=== PATIENT | female | born 1970 | race Caucasian/White ===

== ENCOUNTER 2018-05-27 16:48 | Observation (INO) ==
[2018-05-27] MEDS ORDERED: Nitroglycerin 0.4 MG TAB.SUBL SL ONE (17:30)
[2018-05-27] MEDS ORDERED: Aspirin 81 MG TAB.CHEW PO ONE (17:30)
--- NOTE | 2018-05-27 17:46 | Emergency Department Note ---
Disposition Clinical Impression: Cough, Chest pain Disposition: Admitted As Inpatient Condition: Fair Time of Disposition: 19:01 Chest Pain HPI - General Stated Complaint: Chest Pain Time Seen by Provider: 05/27/18 17:25 Source: patient Mode of arrival: ambulatory Limitations: no limitations Vital Signs Reviewed: Yes Nursing Notes Reviewed: Yes - History of Present Illness HPI Narrative: Patient presents to the emergency room with complaint of shortness of breath and chest pain. Patient has never had symptoms like this before. She has been complaining of a productive cough sputum. She does have COPD. Patient has no specific cardiac history outside of atrial fibrillation. She otherwise is denying shortness of breath headache vision changes nausea vomiting or diarrhea. Currently denying fevers or chills. She has not started any new medications or had any other symptoms or complaints. 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: constant Onset: during rest Pain Location: substernal Severity: moderate Severity scale (1-10): 4 Quality: aching Improves with: nothing Worsens with: movement, other Context: recent illness Associated symptoms: Reports: dyspnea Treatments prior to arrival chest pain: none - Related Data Home Medications Medication Instructions Recorded Confirmed Hydrochlorothiazide 12.5 mg PO DAILY 08/03/17 08/03/17 Lisinopril 5 mg PO DAILY 08/03/17 08/03/17 Previous Rx's Medication Instructions Recorded Venlafaxine XR (24 HR) [Effexor Xr] 150 mg PO DAILY #30 cap.er.24h 04/25/16 Allergies Allergy/AdvReac Type Severity Reaction Status Date / Time moxifloxacin [From Avelox] Allergy Hives Verified 06/04/15 14:44 codeine AdvReac Palpitation Verified 06/04/15 14:44 s All systems ED: reviewed and negative except as stated. Review of Systems: As Per HPI Constitutional: Denies: fever, chills, weakness ENT ED: Reports: congestion. Denies: ear pain, throat pain, dysphagia Cardiovascular: Reports: chest pain. Denies: palpitations, dyspnea on exertion, orthopnea, edema Respiratory: Reports: cough, sputum production. Denies: dyspnea, wheezes Gastrointestinal: Denies: abdominal pain, nausea, vomiting, diarrhea Genitourinary: Denies: urgency, dysuria Musculoskeletal: Denies: back pain, neck pain Neurological: Denies: headache Chest Pain PMH - Past Medical History Medical history: Reports: COPD, coronary artery disease, hyperlipidemia, hypertension, TIA Psychiatric history: Reports: bipolar, schizophrenia PSYCHIATRIC RN history: Reports: bilateral tubal ligation - Social History Smoking Status: Current every day smoker Alcohol use: Reports: none Drug use: Reports: none Physical Exam - General Limitations: no limitations General appearance: alert, in no apparent distress - Head Head exam: atraumatic, normocephalic, normal inspection - Eye Eye exam: Present: normal appearance, PERRL, EOMI. Absent: scleral icterus, conjunctival injection, nystagmus - ENT ENT exam: normal exam, normal oropharynx, mucous membranes moist - Neck Neck exam: Present: normal inspection, full ROM, trachea midline. Absent: tenderness, meningismus, lymphadenopathy - Chest Chest inspection: Present: normal inspection, symmetric chest wall rise. Absent: tenderness - Respiratory Respiratory exam: Present: normal lung sounds bilaterally. Absent: respiratory distress - Cardiovascular Cardiovascular exam: Present: regular rate, normal rhythm, normal heart sounds - Abdominal Exam Abdominal exam: Present: soft, Non-Tender, normal bowel sounds. Absent: tenderness, distention, guarding, rebound, rigidity - Extremities Exam Extremities exam: Present: normal inspection, full ROM, normal capillary refill. Absent: tenderness, pedal edema - Back Exam Back exam: Present: normal inspection, full ROM. Absent: tenderness, CVA tenderness (R), CVA tenderness (L) - Neurological Exam Neurological exam: Present: alert, oriented X3, CN II-XII intact, normal gait - Skin Skin exam: Present: warm, dry, intact, normal color Course Course Narrative: Patient seen and examined the time of arrival. See history of present illness. 48-year-old female presents to the emergency room for evaluation of chest pain. Patient was sitting at a local recreational facility when she started to have a coughing fit and then had tightness across her chest wall. She denied any shortness of breath, fevers, chills. Denied any headache vision changes nausea vomiting or diarrhea. No other complaints or issues noted prior to the events. Patient is only describing a light pressure in her anterior chest wall at this time. She does have a known history of atrial fibrillation and is on Eliquis for this medical problem. She also has a stent in her right femoral artery secondary to arterial occlusion several years ago. She denies any complaints of symptoms in her legs. She is only describing pain in the midsternal region of her chest. She is low risk for pulmonary emboli at this point. She does have some consideration for COPD exacerbation versus pneumonia. Patient did not want breathing treatments or steroids at this time. Vital signs otherwise unremarkable. Cardiac evaluation including CBC, chemistry, troponin, BNP will be completed this time. Nitroglycerin as aspirin will be given here in the emergency room. Patient does have moderate risk for coronary artery disease ba sed on her history and risk factors. Disposition will most likely be admission dependent upon what the patient would want to have completed. We will continue to monitor here symptomatic control is completed and disposition is determined. No other acute issues noted during this treatment course. Physical exam shows clear lungs heart is regular. Abdomen is soft nontender nondistended no guardin g no rigidity no peritoneal symptoms. Patient is good appreciable pulses in the bilateral radial distribution as well as femoral. No other acute issues noted this time. Patient will have detailed cardiac evaluation completed this point in the disposition determined. - Reevaluation(s) Reevaluation #1: Patient's chest pain is still present one hour after arrival. Repeat EKG was collected and there was concern for ST segment depression in lead 1 as well as possible elevation in V1. Concern is noted that this is evolution of chest discomfort. Patient nitroglycerin will be given at this time. After the first dose of nitroglycerin the patient's blood pressure came down the patient's pain went away completely. Another EKG was collected after the pain had resolved and it was negative. Because of EKG changes as well as a symptomatic control I revi ewed the EKGs with the on-call ruby on rails developer Dr. Guallpa. He agreed with symptomatic control treatment for unstable angina. Heparin drip will be ordered at this time and patient will be admitted to the hospitals. Her labs are completely unremarkable this point. She denies any history of bleeding related issue she has not had any vaginal bleeding or blood in her stool. Her chest x-ray stable no acute signs of pneumomediastinum a widened cardiac silhouette. Patient will be admitted. The hospitalist Dr. Romano and I reviewed the patient's case. He had no other recommendations or concerns. Patient is otherwise clinically stable. Patient will be admitted for cardiac evaluation. She is still chest pain-free. I discussed this with the patient they are comfortable with the admission process. Patient is otherwise clinically stable to time of admission. No critical care applied to the patient's treatment course Time: 18:58 Vital Signs Temperature 98.3 F 05/27/18 17:55 Pulse Rate 73 05/27/18 17:55 Respiratory Rate 20 05/27/18 17:55 Blood Pressure 167/110 05/27/18 17:55 O2 Sat by Pulse Oximetry 97 05/27/18 17:55 Temperature 98.3 F 05/27/18 17:55 Pulse Rate 93 05/27/18 18:33 Respiratory Rate 18 05/27/18 18:33 Blood Pressure 158/109 05/27/18 18:33 O2 Sat by Pulse Oximetry 97 05/27/18 18:33 Oxygen Delivery Oxygen Delivery Room Air Chest Pain - MDM Narrative Medical decision making narrative: Chest pain, cough - Medical Records Medical records reviewed: Yes I reviewed the patient's medical records. - Lab Data Lab results reviewed: Yes I reviewed the patient's lab results. Result diagrams: 05/27/18 17:55 05/27/18 17:55 Lab Results 05/27/18 05/27/18 05/27/18 Range/Units 17:47 17:55 17:55 WBC (4.3-11.1) K/mcL RBC (3.82-4.97) M/mcL Hgb (11.5-15.4) g/dL Hct (35.3-44.9) % MCV (83.0-100.0) fL MCH (28.0-33.3) pg MCHC (31.6-35.5) g/dL RDW (11.5-14.5) % Plt Count (140-400) K/mcL MPV (9.4-12.4) fL Immature Gran % (0-4) % Seg Neutrophils % % Lymphocytes % % Monocytes % % Eosinophils % % Basophils % % Neutrophils # (1.6-8.9) K/mcL Lymphocytes # (0.6-4.6) K/mcL Monocytes # (0.0-1.3) K/mcL Eosinophils # (0.0-0.6) K/mcL Basophils # (0.0-0.2) K/mcL PT 11.2 (9.4-12.1) Seconds INR 1.0 APTT 39.1 H (26.0-36.0) Seconds Sodium (136-145) mEq/L Potassium (3.5-5.1) mEq/L Chloride (98-107) mEq/L Carbon Dioxide (23-29) mEq/L BUN (6-20) mg/dL Creatinine (0.60-1.20) mg/dL Est GFR ( Amer) (> 60) Est GFR (Non-Af Amer) (> 60) BUN/Creatinine Ratio (6-26) Glucose (70-105) mg/dL Calculated Osmolality (280-300) Calcium (8.6-10.3) mg/dL Troponin I (< 0.04) ng/mL B-Natriuretic Peptide 276 H (Less than 100) pg/mL Urine Color Yellow (Yellow) Urine Clarity Hazy A (Clear) Urine pH 6.0 (5.0-8.0) pH Units Ur Specific [place] 1.012 (1.010-1.025) Urine Protein Negative (Neg-Trace) mg/dL Urine Glucose (UA) Normal (Normal) mg/dL Urine Ketones Negative (Negative) mg/dL Urine Blood Negative (Negative) Urine Nitrite Negative (Negative) Urine Bilirubin Negative (Negative) Urine Urobilinogen Normal (Normal) mg/dL Ur Leukocyte Esterase Trace H (Negative) Urine Microscopic RBC 5-15 H (0-3) per hpf Urine Microscopic WBC 5-15 H (0-3) per hpf Ur Squamous Epith Cells Many H (None-Few) per lpf Urine Bacteria Few (None-Few) per hpf Hyaline Casts None Seen (None-Few) per lpf Ur Culture Indicated? NO. A (NO) 05/27/18 05/27/18 Range/Units 17:55 17:55 WBC 8.5 (4.3-11.1) K/mcL RBC 4.79 (3.82-4.97) M/mcL Hgb 14.9 (11.5-15.4) g/dL Hct 43.4 (35.3-44.9) % MCV 90.6 (83.0-100.0) fL MCH 31.1 (28.0-33.3) pg MCHC 34.3 (31.6-35.5) g/dL RDW 14.2 (11.5-14.5) % Plt Count 231 (140-400) K/mcL MPV 11.2 (9.4-12.4) fL Immature Gran % 0.2 (0-4) % Seg Neutrophils % 60.3 % Lymphocytes % 30.3 % Monocytes % 5.7 % Eosinophils % 3.0 % Basophils % 0.5 % Neutrophils # 5.1 (1.6-8.9) K/mcL Lymphocytes # 2.6 (0.6-4.6) K/mcL Monocytes # 0.5 (0.0-1.3) K/mcL Eosinophils # 0.3 (0.0-0.6) K/mcL Basophils # 0.0 (0.0-0.2) K/mcL PT (9.4-12.1) Seconds INR APTT (26.0-36.0) Seconds Sodium 137 (136-145) mEq/L Potassium 3.7 (3.5-5.1) mEq/L Chloride 104 (98-107) mEq/L Carbon Dioxide 26 (23-29) mEq/L BUN 11 (6-20) mg/dL Creatinine 0.64 (0.60-1.20) mg/dL Est GFR ( Amer) > 60 (> 60) Est GFR (Non-Af Amer) > 60 (> 60) BUN/Creatinine Ratio 17 (6-26) Glucose 112 H (70-105) mg/dL Calculated Osmolality 284 (280-300) Calcium 10.1 (8.6-10.3) mg/dL Troponin I < 0.03 (< 0.04) ng/mL B-Natriuretic Peptide (Less than 100) pg/mL Urine Color (Yellow) Urine Clarity (Clear) Urine pH (5.0-8.0) pH Units Ur Specific [place] (1.010-1.025) Urine Protein (Neg-Trace) mg/dL Urine Glucose (UA) (Normal) mg/dL Urine Ketones (Negative) mg/dL Urine Blood (Negative) Urine Nitrite (Negative) Urine Bilirubin (Negative) Urine Urobilinogen (Normal) mg/dL Ur Leukocyte Esterase (Negative) Urine Microscopic RBC (0-3) per hpf Urine Microscopic WBC (0-3) per hpf Ur Squamous Epith Cells (None-Few) per lpf Urine Bacteria (None-Few) per hpf Hyaline Casts (None-Few) per lpf Ur Culture Indicated? (NO) - Radiology Data Radiology results reviewed: Yes I reviewed the patient's radiology results. Chest x-ray is otherwise unremarkable. - EKG Data EKG attestation: Yes I reviewed and interpreted this EKG. EKG results narrative: EKG shows sinus rhythm. Heart rate of 82. CO interval 153. QRS duration of 85. QTC of 409. No acute signs of myocardial infarction. Lynch appears to be normal. No acute signs of WPW or Brugada syndrome. EKG will be reviewed. EKG #2 sinus rhythm. Heart rate of 75. CO interval 187. QRS duration 91. QTC of 444. Slight elevation in V1 with possible depression in lead 1. No other acute signs of ST segment elevation. T-wave inversion is noted in aVL. Patient was still having chest pain at the time. This does not meet STEMI criteria. Nitroglycerin trial started EKG #3 Nitroglycerin has been given chest pain is 0. EKG is identical to EKG #2. Slight ST segment elevation in lead V1. With slight depression in lead 1. Heart rate is 77. CO Intervals 203. QRS duration 90 5. QTC of 427. Lynch is normal. The T-wave in V1 has slight biphasic presentation but does not meet Brugada syndrome criteria. No other acute abnormalities noted Heart Score - Score History: Moderately Suspicious EKG: Non Specific repolarisation Disturbance Age: 45-65 Risk Factors: 1-2 risk factors Troponin: Less than normal limit HEART Score Total: 4
[2018-05-27 18:00] LABS: Bilirubin,Urine Negative (Negative); Blood,Urine Negative (Negative); Color,Urine Yellow (Yellow); Glucose,Urine (UA) Normal (Normal); Ketones,Urine Negative (Negative); Leukocyte Esterase,Urine Trace (Negative); Nitrite,Urine Negative (Negative); Protein,Urine Negative (Neg-Trace); Specific Gravity,Urine 1.012 (1.010-1.025); Urobilinogen,Urine Normal (Normal)
[2018-05-27 18:01] LABS: Bacteria,Urine Few per hpf (None-Few); Hyaline Casts,Urine None Seen per lpf (None-Few); Squamous Epithelial Cell,Urine Many per lpf (None-Few)
[2018-05-27 18:07] LABS: Clarity,Urine Hazy (Clear)
[2018-05-27 18:16] LABS: Basophils % 0.5 %; Eosinophils # 0.3 K/mcL (0.0-0.6); Hematocrit 43.4 % (35.3-44.9); Hemoglobin 14.9 g/dL (11.5-15.4); Immature Granulocytes % 0.2 % (0-4); Lymphocytes # 2.6 K/mcL (0.6-4.6); Lymphocytes % 30.3 %; Mean Corpuscular HGB Conc 34.3 g/dL (31.6-35.5); Mean Corpuscular Hemoglobin 31.1 pg (28.0-33.3); Mean Corpuscular Volume 90.6 fL (83.0-100.0); Mean Platelet Volume 11.2 fL (9.4-12.4); Monocytes # 0.5 K/mcL (0.0-1.3); Monocytes % 5.7 %; Neutrophils # 5.1 K/mcL (1.6-8.9); Platelet Count 231 K/mcL (140-400); Red Blood Count 4.79 M/mcL (3.82-4.97); Red Cell Distribution Width 14.2 % (11.5-14.5); Segmented Neutrophils % 60.3 %
[2018-05-27 18:24] LABS: Prothrombin Time 11.2 Seconds (9.4-12.1)
[2018-05-27 18:26] LABS: Activated Partial Thrombo Time 39.1 Seconds (26.0-36.0)
[2018-05-27] MEDS ORDERED: *HR* Heparin 5,000 UNIT/ML VIAL IVP ONE (18:33)
[2018-05-27] MEDS ORDERED: *HR* Heparin 5,000 UNIT/ML VIAL IVP PRN (18:33)
[2018-05-27 18:38] LABS: BUN/Creatinine Ratio 17 (6-26); Blood Urea Nitrogen 11 mg/dL (6-20); Calcium 10.1 mg/dL (8.6-10.3); Carbon Dioxide 26 mEq/L (23-29); Chloride 104 mEq/L (98-107); Glucose 112 mg/dL (70-105); Osmolality,Calculated 284 (280-300); Potassium 3.7 mEq/L (3.5-5.1); Sodium 137 mEq/L (136-145); eGFR For Non-African Americans > 60 (> 60)
[2018-05-27 18:39] LABS: Troponin I < 0.03 ng/mL (< 0.04)
[2018-05-27 18:55] LABS: Heparin anti-factor XA UFH 0.02 IU/mL (0.30-0.70)
[2018-05-27] MEDS: Heparin 25,000 UNIT/500 ML D5W 25,000 UNIT/500 ML BAG IVC SCH (19:29)
[2018-05-27] MEDS ORDERED: Naloxone 0.4 MG/ML INJ IVP PRN (23:42)
--- NOTE | 2018-05-28 00:11 | Internal Med History&Physical ---
Date of Encounter: 05/28/18 Time of Encounter: 22:45 Internal Medicine - H&P: HPI Chief complaint: Chest Pain Admitted From: Home Plans for Post Hospital Care: Home History of present illness: Ms. Mackey is a 48 year old female with past medical history significant for CAD, hypertension, hyperlipidemia, Afib, right femoral artery stent secondary to arterial occlusion, tobacco abuse, TIA, bipolar, and schizoaffective disorder who presents for complaints of substernal 10/10 chest pain without radiation that started suddenly while walking. Patient describes pain as feeling like someone was standing on her chest, and states she has never felt pain like this before. Pain was associated with nausea and diaphoresis. Pain was alleviated with nitroglycerin 2 in ER but denies any other alleviating or exacerbating factors. Currently denies chest pain, shortness of breath, headache, abdominal pain, nausea, bowel or bladder changes. ER reported EKG with slight ST elevation in lead V1, slight ST depression in lead 1, and slight biphasic presentation of T wave in lead V1. These findings were discussed between the ER provider and on-call cardiology Dr. Guallpa who recommended heparin drip for suspected unstable angina. Patient continues to be pain-free at this time. Also states that she has had a dry non productive cough for the past week, states this occasionally happens and resolves without intervention. Reports negative stress test in the past around 2 years ago. Denies any past echocardiogram or heart catheterization. Past Med Surg Social Fam HX - Past Medical History Medical history: atrial fibrillation, COPD, coronary artery disease, hyperlipidemia, hypertension, TIA Psychiatric history: bipolar, schizophrenia - Past Surgical History Additional surgical history: benign growth removed from throat - Social History Smoking Status: Current every day smoker Smokeless Tobacco Status: No Alcohol use: none Drug use: none - Family History Mother Hx Family Endocrine Disorder: Yes (Diabetes) Father Hx Family Cardiac Disorders: Yes Internal Medicine - H&P: Meds Venlafaxine XR (24 HR) [Effexor Xr] 150 mg PO DAILY #30 cap.er.24h 04/25/16 [Rx] Hydrochlorothiazide 12.5 mg PO DAILY 08/03/17 [History] Lisinopril 5 mg PO DAILY 08/03/17 [History] Allergy/AdvReac Type Severity Reaction Status Date / Time moxifloxacin [From Avelox] Allergy Hives Verified 06/04/15 14:44 codeine AdvReac Palpitation Verified 06/04/15 14:44 s All Systems PM: A 10-system review of systems was performed and is negative for pertinent findings except as documented above in the HPI. - Constitutional Vitals: Temp Pulse Resp BP Pulse Ox 98.2 F 71 15 156/97 96 05/27/18 21:01 05/27/18 21:01 05/27/18 21:01 05/27/18 21:01 05/27/18 21:24 Exam: General: Alert and oriented. Skin:Normal color, no rash, no lesions. HEENT:Pupils equal, round and reactive. Cardiovascular:Normal S1 & S2, no rubs, murmurs or gallops. No JVD. Pulse regular. Lungs:Decreased breath sounds, no wheezes or crackles. Abdomen:Soft, non-tender, no rigidity. Extremities:No deformity, no edema or tenderness, no joint swelling or clubbing. Neurological:Normal cognition and motor skills. Pulses:Carotid and radial pulses normal +2. Rest of the physical exam is non contributory. Internal Med - H&P Results - Labs CBC & Chem 7: 05/27/18 17:55 05/27/18 17:55 Labs: Short CBC 05/27/18 Range/Units 17:55 WBC 8.5 (4.3-11.1) K/mcL Hgb 14.9 (11.5-15.4) g/dL Hct 43.4 (35.3-44.9) % Plt Count 231 (140-400) K/mcL Neutrophils # 5.1 (1.6-8.9) K/mcL BMP 05/27/18 17:55 Sodium 137 Potassium 3.7 Chloride 104 Carbon Dioxide 26 BUN 11 Creatinine 0.64 Glucose 112 H Calcium 10.1 Cardiac Enzymes 05/27/18 Range/Units 17:55 Troponin I < 0.03 (< 0.04) ng/mL Urine 05/27/18 Range/Units 17:47 Urine Color Yellow (Yellow) Urine Clarity Hazy A (Clear) Urine pH 6.0 (5.0-8.0) pH Units Ur Specific [place] 1.012 (1.010-1.025) Urine Protein Negative (Neg-Trace) mg/dL Urine Glucose (UA) Normal (Normal) mg/dL - Impressions ITS Impressions Chest X-Ray 05/27/18 17:30 IMPRESSION: No evidence of acute cardiopulmonary findings. D/ / Mariaa Kwon MD / Mariaa Kwon MD Interpreting Provider: Mariaa Kwon MD - Assessment and plan (1) Chest pain Current Visit: Yes Status: Acute Assessment and plan: Cardiology consulted by ER. 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 Heparin drip started in ER per cardiology, will continue same. Initial troponin negative, serial troponins ordered. NPO at midnight. Qualifiers: Chest pain type: unspecified Qualified Code(s): R07.9 - Chest pain, unspecified (2) Elevated brain natriuretic peptide (BNP) level Current Visit: Yes Status: Acute Assessment and plan: No current signs of heart failure. Repeat labs in a.m. (3) Schizoaffective disorder Current Visit: Yes Status: Chronic Assessment and plan: Continue home meds once verified. Qualifiers: Schizoaffective disorder type: unspecified Qualified Code(s): F25.9 - Schizoaffective disorder, unspecified (4) Bipolar disease, chronic Current Visit: Yes Status: Chronic Assessment and plan: Continue home meds once verified. (5) Hypertension Current Visit: Yes Status: Chronic Assessment and plan: Continue home meds once verified. Qualifiers: Hypertension type: unspecified Qualified Code(s): I10 - Essential (primary) hypertension (6) Tobacco abuse Current Visit: Yes Status: Chronic Assessment and plan: Smoking cessation encouraged. Refused nicotine patch at this time. - Time Spent With Patient Total time spent is greater than 50% in coordination of care (as documented) at patient's floor/unit and/or counseling patient:
[2018-05-28] MEDS: *HR* Heparin 5,000 UNIT/ML VIAL IVP PRN ×2 (03:49→18:00)
[2018-05-28 07:48] LABS: Basophils # 0.1 K/mcL (0.0-0.2); Basophils % 0.8 %; Eosinophils # 0.4 K/mcL (0.0-0.6); Eosinophils % 4.8 %; Hematocrit 45.4 % (35.3-44.9); Hemoglobin 14.8 g/dL (11.5-15.4); Immature Granulocytes % 0.3 % (0-4); Lymphocytes # 3.8 K/mcL (0.6-4.6); Lymphocytes % 43.4 %; Mean Corpuscular HGB Conc 32.6 g/dL (31.6-35.5); Mean Corpuscular Hemoglobin 30.2 pg (28.0-33.3); Mean Corpuscular Volume 92.7 fL (83.0-100.0); Monocytes # 0.6 K/mcL (0.0-1.3); Monocytes % 6.9 %; Neutrophils # 3.8 K/mcL (1.6-8.9); Platelet Count 236 K/mcL (140-400); Red Cell Distribution Width 14.1 % (11.5-14.5); Segmented Neutrophils % 43.8 %
--- NOTE | 2018-05-28 09:32 | Internal Med Progress Note ---
Hospitalist Progress Note - Encounter Date of Encounter: 05/28/18 Time of Encounter: 08:00 - Subjective Interval History: Patient was seen and examined at bedside. Reports that her chest pain has resolved since admission. Denies nausea, vomiting, diarrhea, diaphoresis. She has no other complaints. No overnight events. - Exam Vitals: Temp Pulse Resp BP Pulse Ox 97.7 F 72 20 158/92 97 05/28/18 07:26 05/28/18 07:26 05/28/18 07:26 05/28/18 07:26 05/28/18 07:26 Exam: General: Patient is alert, oriented, no acute distress, obese Head: atraumatic, normocephalic, Eye: normal appearance, PERRL, no scleral icterus, no conjunctival injection ENT: mucous membranes moist, normal external ear exam Neck: normal inspection, trachea midline, full ROM, no carotid bruits Chest: normal inspection, symmetric chest rise Respiratory: Good respiratory effort. Bilateral breath sounds are clear without wheezing, crackles, or rhonchi. Cardiovascular: Distant heart sounds secondary to body habitus, Regular rate and rhythm. s1 and s2 No clicks, rubs, gallops, or murmors. Abdomen: Bowel sounds present normoactive x-4 quadrants. Abdomen is soft, nondistended. no Epigastric tenderness. No guarding or rebound. No organomegaly noted, obese musculoskeletal: Spontaneously moving all extremities. no edema, no calf tenderness Skin: warm, dry, intact. Neuro: Alert and oriented x4. No focal deficit Psych: Patient's affect is normal - Assessment and Plan (1) Unstable angina Current Visit: Yes Status: Acute Assessment and Plan: Patient with chest pain and EKG changes on admission which was relieved by nitroglycerin Troponins negative [address] Guallpa consulted by the ED physician and recommended heparin drip- will follow further recs Aspirin 81 mg Started on metoprolol 12.5 mg BID continue lisinopril 5 mg lipitor 40 mg QHS TTE NTG PRN for chest pain TSH, Lipid panel, A1c (2) Schizoaffective disorder Current Visit: Yes Status: Chronic Assessment and Plan: Continue home meds once verified. (3) Bipolar disease, chronic Current Visit: Yes Status: Chronic Assessment and Plan: Continue home meds once verified. (4) Hypertension Current Visit: Yes Status: Chronic Assessment and Plan: on liniopril will adjust as per BP (5) Tobacco abuse Current Visit: Yes Status: Chronic Assessment and Plan: Smoking cessation encouraged. Refused nicotine patch at this time. (6) Obesity (BMI 30.0-34.9) Current Visit: Yes Status: Acute Assessment and Plan: Was counseled BMI 31 (7) DVT prophylaxis Current Visit: Yes Status: Acute Assessment and Plan: hep drip - Time Spent with Patient Total time spent is greater than 50% in coordination of care (as documented) at patient's floor/unit and/or counseling patient: Internal Medicine: Result - Labs CBC & Chem 7: 05/28/18 07:23 05/27/18 17:55 Labs: Short CBC 05/27/18 05/28/18 Range/Units 17:55 07:23 WBC 8.5 8.8 (4.3-11.1) K/mcL Hgb 14.9 14.8 (11.5-15.4) g/dL Hct 43.4 45.4 H (35.3-44.9) % Plt Count 231 236 (140-400) K/mcL Neutrophils # 5.1 3.8 (1.6-8.9) K/mcL BMP 05/27/18 17:55 Sodium 137 Potassium 3.7 Chloride 104 Carbon Dioxide 26 BUN 11 Creatinine 0.64 Glucose 112 H Calcium 10.1 Cardiac Enzymes 05/27/18 05/28/18 Range/Units 17:55 02:26 Troponin I < 0.03 < 0.03 (< 0.04) ng/mL Urine 05/27/18 Range/Units 17:47 Urine Color Yellow (Yellow) Urine Clarity Hazy A (Clear) Urine pH 6.0 (5.0-8.0) pH Units Ur Specific [place] 1.012 (1.010-1.025) Urine Protein Negative (Neg-Trace) mg/dL Urine Glucose (UA) Normal (Normal) mg/dL - ABG Interpretation ABG results: PT/INR, D-dimer PT 11.2 Seconds (9.4-12.1) 05/27/18 17:55 - Impressions Impressions Chest X-Ray 05/27/18 17:30 IMPRESSION: No evidence of acute cardiopulmonary findings. D/ / Mariaa Kwon MD / Mariaa Kwon MD Interpreting Provider: Mariaa Kwon MD Consult Discharge Plan - Plan (2) Schizoaffective disorder Qualifiers: Schizoaffective disorder type: unspecified Qualified Code(s): F25.9 - S chizoaffective disorder, unspecified (4) Hypertension Qualifiers: Hypertension type: unspecified Qualified Code(s): I10 - Essential (primary) h ypertension
[2018-05-28] MEDS ORDERED: Nitroglycerin 0.4 MG TAB.SUBL SL PRN (09:38)
[2018-05-28] MEDS: Aspirin 81 MG TAB.CHEW PO SCH (09:44)
--- NOTE | 2018-05-28 10:21 | Cardiology Consult Note ---
Date of Encounter: 05/28/18 Time of Encounter: 10:12 Assessment and Plan (1) Chest pain Current Visit: Yes Status: Acute Atypical symptoms with borderline EKG changes. BRITTNY negative so far. Would complete BRITTNY and check echo. If all negative would consider stress test. Qualifiers: Chest pain type: unspecified Qualified Code(s): R07.9 - Chest pain, unspecified Discussion w patient/family: The assessment and plan as outlined above was discussed with the patient and/or family members who expressed understanding and agreement. All questions were answered. Thank you for involving us in the care of your patient. Please call with any questions. History of Present Illness Consult date: 05/28/18 Requesting physician: Brionna Romano Consult reason: chest pain Chief complaint: chest pain History of present illness: Ms. Mackey is a 48 year old female with multiple medical problems presents with atypical chest pain. Episode actually started as a headache that then progressed to diaphoresis and then chest pain. Pain was persistent for several hours and had no aggravating or relieving factors. No recurrent chest pain. She has no exertional symptoms. Past Med Surg Social Fam HX - Past Medical History Medical history: atrial fibrillation, COPD, coronary artery disease, hyperlipidemia, hypertension, TIA Psychiatric history: bipolar, schizophrenia - Past Surgical History Additional surgical history: benign growth removed from throat - Social History Smoking Status: Current every day smoker Smokeless Tobacco Status: No Alcohol use: none Drug use: none - Family History Mother Hx Family Endocrine Disorder: Yes (Diabetes) Father Hx Family Cardiac Disorders: Yes Medications and Allergies Venlafaxine XR (24 HR) [Effexor Xr] 150 mg PO DAILY #30 cap.er.24h 04/25/16 [Rx] Hydrochlorothiazide 12.5 mg PO DAILY 08/03/17 [History] Lisinopril 5 mg PO DAILY 08/03/17 [History] Allergy/AdvReac Type Severity Reaction Status Date / Time moxifloxacin [From Avelox] Allergy Hives Verified 06/04/15 14:44 codeine AdvReac Palpitation Verified 06/04/15 14:44 s All Systems Review: The remainder of the systems were reviewed and are negative Physical Examination Vital Signs, Last 4 Hours Temp Pulse Resp BP Pulse Ox 05/28/18 07:26 97.7 F 72 20 158/92 97 General: Conversant, No Apparent Distress HEENT: Atraumatic, Normocephaly, Mucus Membranes Moist Neck: No JVD, Normal carotid pulses Cardiac: Reg Rate and Rhythm, Normal S1 and S2, No Murmur Lungs: Normal Breath Sounds, No Wheeze, Rales, Rhonchi Neuro: Alert and responsive, No focal deficits noted Abdomen: Soft, Non-Tender Skin: No rashes noted on visualized skin Musculoskeletal: No Chest Wall Tenderness Extremities: No Clubbing, No Cyanosis, No Edema, Normal Pulses Results 05/28/18 07:23 05/27/18 17:55 Lab Results 05/27/18 05/27/18 05/27/18 17:55 17:55 17:55 WBC 8.5 Hgb 14.9 Hct 43.4 Plt Count 231 INR 1.0 APTT 39.1 H Sodium Potassium Chloride Carbon Dioxide BUN Creatinine Glucose Calcium Troponin I B-Natriuretic Peptide 276 H 05/27/18 05/28/18 05/28/18 17:55 02:26 07:23 WBC 8.8 Hgb 14.8 Hct 45.4 H Plt Count 236 INR APTT Sodium 137 Potassium 3.7 Chloride 104 Carbon Dioxide 26 BUN 11 Creatinine 0.64 Glucose 112 H Calcium 10.1 Troponin I < 0.03 < 0.03 B-Natriuretic Peptide 05/28/18 05/28/18 07:23 08:50 WBC Hgb Hct Plt Count INR APTT Sodium Potassium Chloride Carbon Dioxide BUN Creatinine Glucose Calcium Troponin I < 0.03 B-Natriuretic Peptide 183 H - EKG Interpretation EKG results cardiology: personally reviewed (NSR, ST-T wave changes possibly secondary to LVH) Consult Discharge Plan - Plan Referrals: Nancy Mars QUARTER BACKER [Primary Care Provider] -
[2018-05-28] MEDS: Acetaminophen 325 MG TABLET PO PRN (15:38)
[2018-05-28] MEDS: Heparin 25,000 UNIT/500 ML D5W 25,000 UNIT/500 ML BAG IVC SCH (17:45)
[2018-05-28] MEDS: Venlafaxine XR (24 HR) 75 MG CAP.ER.24H PO SCH (22:26)
[2018-05-28] MEDS: Nicotine 7 MG PATCH.TD24 TD SCH (22:28)
[2018-05-29 01:00] LABS: BUN/Creatinine Ratio 21 (6-26); Blood Urea Nitrogen 14 mg/dL (6-20); Calcium 9.2 mg/dL (8.6-10.3); Carbon Dioxide 25 mEq/L (23-29); Chloride 106 mEq/L (98-107); Chol/HDL Ratio 12.8 (0-4.9); Cholesterol 268 mg/dL (< 200); Glucose 90 mg/dL (70-105); HDL Cholesterol 21 mg/dL (40-59); Osmolality,Calculated 286 (280-300); Potassium 3.7 mEq/L (3.5-5.1); Sodium 138 mEq/L (136-145); Triglycerides 966 mg/dL (< 150); eGFR For Non-African Americans > 60 (> 60)
[2018-05-29] MEDS ORDERED: Regadenoson 0.4 MG/5 ML SYRINGE IVP ONE (05:42)
[2018-05-29 08:36] LABS: Estimated Average Glucose 111 mg/dl; Hemoglobin A1C 5.5 %
[2018-05-29] MEDS: Venlafaxine XR (24 HR) 75 MG CAP.ER.24H PO SCH (09:04)
[2018-05-29] MEDS: Aspirin 81 MG TAB.CHEW PO SCH (09:04)
--- NOTE | 2018-05-29 10:45 | Internal Med Progress Note ---
Hospitalist Progress Note - Encounter Date of Encounter: 05/29/18 Time of Encounter: 10:39 - Subjective Interval History: Patient was seen and examined at bedside. Reports that her chest pain has resolved since admission. Denies nausea, vomiting, diarrhea, diaphoresis. She has no other complaints. No overnight events. - Exam Vitals: Temp Pulse Resp BP Pulse Ox 97.9 F 73 15 169/113 97 05/29/18 09:15 05/29/18 09:15 05/29/18 04:42 05/29/18 09:15 05/29/18 09:15 Exam: General: Patient is alert, oriented, no acute distress, obese Head: atraumatic, normocephalic, Eye: normal appearance, PERRL, no scleral icterus, no conjunctival injection ENT: mucous membranes moist, normal external ear exam Neck: normal inspection, trachea midline, full ROM, no carotid bruits Chest: normal inspection, symmetric chest rise Respiratory: Good respiratory effort. Bilateral breath sounds are clear without wheezing, crackles, or rhonchi. Cardiovascular: Distant heart sounds secondary to body habitus, Regular rate and rhythm. s1 and s2 No clicks, rubs, gallops, or murmors. Abdomen: Bowel sounds present normoactive x-4 quadrants. Abdomen is soft, nondistended. no Epigastric tenderness. No guarding or rebound. No organomegaly noted, obese musculoskeletal: Spontaneously moving all extremities. no edema, no calf tenderness Skin: warm, dry, intact. Neuro: Alert and oriented x4. No focal deficit Psych: Patient's affect is normal - Assessment and Plan (1) Unstable angina Current Visit: Yes Status: Acute Assessment and Plan: Patient with chest pain and EKG changes on admission which was relieved by nitroglycerin Troponins negative 3 Aspirin 81 mg metoprolol 12.5 mg BID lisinopril increased to 20 mg on heparin Drip lipitor 40 mg QHS TTE - LVEF 55%.Normal LV chamber size, wall thickness and systolic function. Mild left ventricular diastolic dysfunction. Stress test performd on 05/29- positive for ischemia in Distal LAD. NTG PRN for chest pain TSH WNL Lipid panel noted - started on statins- discussed diet and nutrition A1c 5.5 Discussed case with interventionalist - [facility] on 05/29 stress test: Pharmacologic stress ECG is negative for ischemia at level of heart rate achieved. Gated EF = 38%. Medium sized, mild to moderate intensity, mostly reversible defect in the apex and surrounding apical segments suggestive of ischemia. Ordering physician notified via [employer]. TTE: LVEF 55%. Normal LV chamber size, wall thickness and systolic function. Mild left ventricular diastolic dysfunction. Normal right ventricular structure and function. No significant valvular dysfunction. No pulmonary hypertension. (2) Schizoaffective disorder Current Visit: Yes Status: Chronic Assessment and Plan: Continue home meds once verified. (3) Bipolar disease, chronic Current Visit: Yes Status: Chronic Assessment and Plan: Continue home meds once verified. (4) Hypertension Current Visit: Yes Status: Chronic Assessment and Plan: on liniopril increased dosage will adjust as per BP (5) Tobacco abuse Current Visit: Yes Status: Chronic Assessment and Plan: Smoking cessation encouraged. Refused nicotine patch at this time. (6) Obesity (BMI 30.0-34.9) Current Visit: Yes Status: Acute Assessment and Plan: Was counseled BMI 31 (7) Hyperlipidemia Current Visit: Yes Status: Acute Assessment and Plan: was counseled extensively on diet and nutrition started on lipitor 80 (8) DVT prophylaxis Current Visit: Yes Status: Acute Assessment and Plan: hep drip - Time Spent with Patient Total time spent is greater than 50% in coordination of care (as documented) at patient's floor/unit and/or counseling patient: Internal Medicine: Result - Labs CBC & Chem 7: 05/28/18 07:23 05/29/18 00:26 Labs: BMP 05/29/18 00:26 Sodium 138 Potassium 3.7 Chloride 106 Carbon Dioxide 25 BUN 14 Creatinine 0.67 Glucose 90 Calcium 9.2 - ABG Interpretation ABG results: PT/INR, D-dimer PT 11.2 Seconds (9.4-12.1) 05/27/18 17:55 - Impressions Impressions Echocardiogram 05/28/18 09:39 Impressions: LVEF 55%. Normal LV chamber size, wall thickness and systolic function. Mild left ventricular diastolic dysfunction. Normal right ventricular structure and function. No significant valvular dysfunction. No pulmonary hypertension. Left Ventricular Wall Motion: Rest Echo Findings All wall segments showed normal motion. Findings: Study Quality * Technically adequate exam. ECG Findings * Normal sinus rhythm. Left Ventricle * LVEF 55%. * Normal LV chamber size, wall thickness and systolic function. * Mild left ventricular diastolic dysfunction. Right Ventricle * Normal right ventricular structure and function. Left Atrium * Normal left atrial size. Right Atrium * Normal right atrial size. Interatrial Septum * Interatrial septum not well evaluated. * No evidence of PFO by color Doppler. Aortic Valve * Trileaflet aortic valve. * No aortic stenosis. * Trace aortic regurgitation. Mitral Valve * Normal mitral valve structure and function. * No mitral stenosis. * No mitral regurgitation. Tricuspid Valve * Normal tricuspid valve structure and function. * No tricuspid stenosis. * Trace tricuspid regurgitation. * Estimated RVSP is 25 mmHg. * Estimated RA pressure is 8 mmHg. * No pulmonary hypertension. Pulmonic Valve * Pulmonic valve is not well visualized. * No pulmonic stenosis. * No pulmonic regurgitation. Aorta * Normally sized aortic root. Pericardium * The pericardium appears normal. IVC * Normal IVC dimensions and inspiratory collapse. Consult Discharge Plan - Plan Referrals: Nancy Mars, [employer]MENT MECH[employer]IC [Primary Care Provider] - (2) Schizoaffective disorder Qualifiers: Schizoaffective disorder type: unspecified Qualified Code(s): F25.9 - Schizoaffective disorder, unspecified (4) Hypertension Qualifiers: Hypertension type: unspecified Qualified Code(s): I10 - Essential (primary) hypertension (7) Hyperlipidemia Qualifiers: Hyperlipidemia type: mixed hyperlipidemia Qualified Code(s): E78.2 - Mixed hyperlipidemia
--- NOTE | 2018-05-29 13:10 | Event Note ---
Date of Encounter: 05/29/18 Time of Encounter: 13:07 - Cardiology Event Note Patient presented with chest pain, underwent stress test today, noted to be abnormal: medium sized, mild intensity mostly reversible defect apex and surrounding apical segments suggestive of ischemia. Discussed abnormal stress test and recommendations for LHC with patient. Risks versus benefits of LHC explained to patient who states understanding and agreeable to proceed. Of note, BP hypertensive 160s systolic. Will add PRN hydralazine. Further recommendations pending LHC today. Patient reports has been NPO today.
--- NOTE | 2018-05-29 15:00 | Electrocardiograph Report ---
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
[2018-05-29] MEDS ORDERED: Heparin 1,000 UNITS/500 mL 500 ML ONE (15:10)
[2018-05-29] MEDS ORDERED: ISOVUE-370 200 ML INFUS..BTL ONE (15:10)
[2018-05-29] MEDS ORDERED: 0.9 % Sodium Chloride 1,000 ML ONE ×2 (15:10→15:11)
[2018-05-29] MEDS ORDERED: *HR* Heparin 10,000 UNIT/10 ML VIAL ONE (15:10)
[2018-05-29] MEDS ORDERED: Nitroglycerin 1,000 MCG/10 ML VIAL IV ONE (15:10)
--- NOTE | 2018-05-29 15:10 | Electrocardiograph Report ---
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
--- NOTE | 2018-05-29 15:10 | Electrocardiograph Report ---
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
[2018-05-29] MEDS ORDERED: *HR* Midazolam HCl 2 MG/2 ML VIAL ONE (15:28)
--- NOTE | 2018-05-29 15:42 | Pre-Sedation Evaluation ---
Pre-sedation evaluation - Pre-sedation checklist Date of procedure: 05/29/18 Procedure: Heart Cath Recent Vitals: Last Vital Signs Temp 97.9 F 05/29/18 09:15 Pulse 73 05/29/18 09:15 Resp 15 05/29/18 04:42 BP 169/113 05/29/18 09:15 Pulse Ox 97 05/29/18 09:15 H&P (including ROS) documented in medical record: Yes Previous reaction to sedatives/anesthetics: No Dietary Status: No solid food in preceding 4 hrs and no liquid in preceding 2 hrs Airway Assessment: Patient can open mouth completely, TMJ function normal Dentition: No loose teeth or bridges Possible difficult airway: No ASA Classification *see protocol: CLASS IV-Severe systemic disease/constant threat to pt's life Plan of Care: Pt appropriate candidate for procedure/moderate/conscious sedation, Risks/benefits of procedure/sedation discussed w/ patient/family, If not NPO; Risk of intake outweiged by necessity to perform procedure Cardiac Registry (Cardio Only) - Functional Capacity Functional Capacity: >=4 METS with symptoms - Clincal Frailty Scale Clinical Frailty Scale: Managing Well
[2018-05-29] MEDS ORDERED: *HR* Bivalirudin 250 MG VIAL IVC ONE (15:47)
--- NOTE | 2018-05-29 16:25 | Event Note ---
Date of Encounter: 05/29/18 Time of Encounter: 16:23 - Cardiology Event Note LHC: Mild global LV systolic impairment, EF 45%, Moderate non-obstructive CAD, 40% mid LAD, FFR not significant at .89 Recomend eval for non cardiac causes of chest pain Saúl Guallpa D.O.
[2018-05-29] MEDS ORDERED: 0.9 % Sodium Chloride 1,000 ML IVC SCH (16:30)
--- NOTE | 2018-05-29 16:46 | Invasive Diagnostic Lab Proc ---
Name: Leeann Mackey Date of Study: 05/29/2018 Date: 1970 Ht: 66.9in Medical Record#: [id number] Age: 48 Wt: 197.09lb Gender: Female BSA: 2.01 Order #: [id number] BMI: 30.97 Physicians Procedure Physician: Saúl Guallpa DO Referring MD: Referring MD: Staff Name Position Time In Helen Flood RT (R) Scrub 03:20 PM Jane Trinidad RN Typesetting Supervisor 03:20 PM Alice Jaramillo RN Monitor 03:20 PM Indications Indication Abnormal Test - Stress Procedures Performed Procedure L HRT ARTERY/VENTRICLE ANGIO IV Doppler BLD Flow 1st Vessel Pre-Procedure Checklist Informed consent is complete signed and on chart. H&P is on chart. ID band is on and ID verified with patient. Patient NPO for procedure The procedure was described for the patient and questions were answered. Blood Pressure: 169/113 ECG is on chart. Rhythm: NSR Plan of Care Patient will tolerate the procedure without complications. Adequate level of comfort will be maintained. Hemodynamics will remain stable Patient will recover from procedure without complications. Respiratory function will be maintained. Cardiac rhythm will remain stable. Patient temperature will be maintained. Patient and/or family have verbalized understanding of the procedure. Patient Education Chief Complaint/Reason for Test: Cardiac Cath Developmental Category: Adult (18-64 years) Developmentally Appropriate for Age: Yes Learning Barriers: None Education Needs: Procedure Education Method: Verbal Information Taught: Cardiac Cath Educational Evaluation: Able to repeat information Intravenous Access Time IV Size Location DC'd Fluid/Drip Rate Units RN 03:07 PM 20g 1 06/16" Patent On Arrival Lt Arm Allergies moxifloxacin codeine Vital Signs Time BP (mmHg) HR (bpm) O2 Sat. RR (bpm) LOC 03:30 PM / % 5 = Fully awake and oriented or at pre-proc level 03:30 PM / % 4 = Oriented but drowsy 03:45 PM / % 4 = Oriented but drowsy 04:01 PM / % 4 = Oriented but drowsy 03:29 PM 155 / 100 64 98 % 20 03:34 PM 157 / 101 62 94 % 9 03:38 PM 156 / 102 66 95 % 15 03:44 PM 152 / 85 64 96 % 16 03:49 PM 151 / 85 64 98 % 15 03:54 PM 164 / 110 68 95 % 20 03:59 PM 157 / 109 71 97 % 19 04:04 PM 157 / 101 71 96 % 21 04:09 PM 154 / 96 67 97 % 19 04:14 PM 157 / 96 68 97 % 19 04:19 PM 143 / 106 71 98 % 12 04:23 PM 161 / 102 65 94 % 22 Procedural Medications Time Medication Dose Units Method Given By 03:30 PM Oxygen 2 L/min nasal cannula Jane Trinidad RN 03:31 PM Versed 2 mg Intravenous Alice Jaramillo RN 03:47 PM Lidocaine 2% 10 ml Subcutaneous Saúl Guallpa DO 03:58 PM Heparin 5000 units Intravenous Jane Trinidad RN 04:01 PM 90mg Adenosine in 90 ml 0.9 NS 747 ml/hr Intravenous Jane Trinidad RN ASA Classification: CLASS IV- Severe systemic that is constant threat to patient's life Joe Score Preprocedure Postprocedure Activity 2- Moves 4 extremities sustained head lift Activity 2- Moves 4 extremities sustained head lift Circulation 2- SBP +/= 20 points of pre-anesthetic level Circulation 2- SBP +/= 20 points of pre-anesthetic level Consciousness 2- Awake and alert oriented x 3 Consciousness 2- Awake and alert oriented x 3 O2 Saturation 2- Able to maintain O2 satruation of 92% on room air O2 Saturation 2- Able to maintain O2 satruation of 92% on room air Respiratory 2- Able to deep breathe and cough well Respiratory 2- Able to deep breathe and cough well Total Score 10 Total Score 10 Contrast Agent: Isovue Diagnostic Contrast: 70 ml Total Contrast: 70 ml Fluoro Dose: 57 mGy Activated Clotting Time Time Seconds to Clot 04:25 PM 266 Procedure Log Time Note Enter By 03:19 PM Pt arrived to laboratory sample carrier 1 at 15:19 [facility] 03:20 PM Helen Flood RT (R) Position: Scrub [facility]: [facility] Jane Trinidad RN Position: Typesetting Supervisor Time in: 15:20 [facility] 03:20 PM Alice Jaramillo RN Position: Monitor Time in: 15:20 [facility] 03:20 PM Patient charges- Angio tray pack, Navilyst 3mm J, Pulse Oximetry and ACIST tubing and transducer [facility] 03:28 PM CathStat 03:28 PM Vitals capture started with the following parameters, Patient=Adult, Interval=5 min, Initial Gpcunqve=293 mmHg, Deflation Rate=3 mmHg, Cuff placed on Right Arm 03:29 PM HR=64 bpm, BVLX=995/100 mmhg, SpO2=98 %, Resp=20 B/min 03:30 PM Time: 15:20 Patient comfortable and pain free: Yes [facility] 03:30 PM Time: 15:30LOC: 5 = Fully awake and oriented or at pre-proc level [facility] :30 PM Time: 15:30 Oxygen on at 2 L/min per nasal cannula by Jane Trinidad RN [facility] 03:31 PM Patient charges- Angio tray pack, Navilyst 3mm J, Pulse Oximetry and ACIST tubing and transducer :31 PM Hair removed from procedure site in procedure lab using clippers. Bilateral groin prepped with Chloraprep by Jane Trinidad RN, then patient was draped. Skin intact. [facility] : PM Physician arrived 15:[facility] :31 PM Meet and greet completed [facility] :31 PM Sign in performed according to hospital policy. Informed consent was obtained. [facility] 03:31 PM Procedure start 15:[facility] : PM Time: 15:31 Versed 2 mg Intravenous Given by Alice Jaramillo RN [facility] 03:33 PM Pressure channel 2 zeroed. 03:33 PM Recorded ECG: HR=67 Condition=Condition 1 03:34 PM HR=62 bpm, FBQK=298/101 mmhg, SpO2=94.0 %, Resp=9 B/min, EtCO2=29 mmHg, Comment=nsr 03:38 PM HR=66 bpm, ZRFJ=232/102 mmhg, SpO2=95.0 %, Resp=15 B/min, EtCO2=32 mmHg, Comment=nsr 03:44 PM HR=64 bpm, VYOJ=120/85 mmhg, SpO2=96.0 %, Resp=16 B/min, EtCO2=32 mmHg, Comment=nsr 03:45 PM Time: 15:30LOC: 4 = Oriented but drowsy [facility] 03:45 PM Time: 15:30 Patient comfortable and pain free: Yes [facility] 03:46 PM Time out was performed according to hospital policy. Conscious sedation and anesthesia was achieved (see medication log with in this report above) [facility] 03:47 PM ASA Class CLASS IV- Severe systemic that is constant threat to patient's life [facility] 03:47 PM Time: 15:47 10 ml Lidocaine 2% to right groin Subcutaneous Given by Saúl Guallpa DO [facility] 03:49 PM HR=64 bpm, BYGB=743/85 mmhg, SpO2=98.0 %, Resp=15 B/min, EtCO2=20 mmHg, Comment=nsr 03:49 PM Micro-Introducer Kit utilized for sheath placement kmavis 03:50 PM Access obtained by percutaneous puncture. 6Fr 10cm Terumo [place] sheath placed in right Femoral artery. [id number] kmavis 03:51 PM 6Fr FR 4 catheter inserted over the wire DN kmavis 03:51 PM 0.035 145cm Navilyst 3mmJ wire [id number] km[facility] 03:52 PM Recorded Pressure: LV, HR=80, Condition=Condition 1 (Left Ventricle) LV 149/85/74 03:52 PM Recorded Pressure: LV, Ao, HR=87, Condition=Condition 1 (Left Ventricle) LV 147/8/54, (Aorta) Ao 142/32/87 03:53 PM Recorded Pressure: Ao, HR=75, Condition=Condition 1 (Aorta) Ao 156/97/120 03:53 PM Bolus angiogram of left Ventricle complete kmavis 03:53 PM RCA angiography performed in multiple views. kmavis 03:53 PM Catheter removed kmavis 03:53 PM 6Fr FL 4 catheter inserted over the wire [facility] kmavis 03:53 PM LCA angiography performed in multiple views. kmavis 03:54 PM Coronary Dominance: right kmavis 03:54 PM Lesion found in Distal RCA. Pre Stenosis: 30 Pre KARO Flow: kmavis 03:54 PM HR=68 bpm, MOUO=925/110 mmhg, SpO2=95.0 %, Resp=20 B/min, EtCO2=28 mmHg, Comment=nsr 03:54 PM Recorded Pressure: Ao, HR=68, Condition=Condition 1 (Aorta) Ao 152/87/110 03:55 PM Right Coronary, Right Posterior Descending Arteries with Right Posterolateral and Acute Marginal branches with 30 % stenosis. If graft is supplying this area, 0 % stenosis kmavis 03:57 PM Catheter removed kmavis 03:57 PM 6Fr JL4 Runway guide catheter was used to cannulate the PCI vessel successfully. reused? No kmavis 03:58 PM .014 ChoICE PT Extra Support 300cm guide wire across target lesion- successful. reused? No kmavis 03:58 PM Inflation device was opened. kmavis 03:58 PM Time: 15:58 Heparin 5000 units Intravenous Given by Jane Trinidad RN [facility] 03:59 PM HR=71 bpm, CCRK=751/109 mmhg, SpO2=97.0 %, Resp=19 B/min 04:00 PM Lesion found in Proximal LAD. Pre Stenosis: 40 Pre KARO Flow: kmavis 04:00 PM Proximal Left Anterior Descending Coronary Artery with 40% stenosis. If graft is supplying this territory, 0 % stenosis. kmavis 04:00 PM Asist FFR Catheter advanced to target lesion. kmavis 04:00 PM Time: 15:45 Patient comfortable and pain free: Yes [facility] 04:01 PM Time: 15:45LOC: 4 = Oriented but drowsy [facility] 04:01 PM Time: 16:01 90mg Adenosine in 90 ml 0.9 NS 747 ml/hr Intravenous Given by Jane Trinidad RN Nichols pump kmavis 04:03 PM Pressure channel 2 zero failed. 04:04 PM HR=71 bpm, NRZE=256/101 mmhg, SpO2=96.0 %, Resp=21 B/min 04:09 PM HR=67 bpm, JWAB=038/96 mmhg, SpO2=97.0 %, Resp=19 B/min, EtCO2=35 mmHg, Comment=nsr 04:11 PM Pressure channel 2 zeroed. 04:13 PM FFR Measurement: at start 0.95 kmavis 04:14 PM HR=68 bpm, LQXG=293/96 mmhg, SpO2=97.0 %, Resp=19 B/min, EtCO2=34 mmHg, Comment=nsr 04:14 PM Recorded Pressure: Ao, HR=66, Condition=Condition 1 (Aorta) Ao 164/97/123 04:16 PM Recorded Pressure: Ao, HR=71, Condition=Condition 1 (Aorta) Ao 124/65/87 04:16 PM Time: 16:00 Patient comfortable and pain free: Yes km[facility] 04:16 PM Time: 16:01LOC: 4 = Oriented but drowsy [facility] 04:16 PM FFR Measurement: 0.89 kmavis 04:16 PM Flow Wire/Catheter removed intact [facility] 04:17 PM contrast injected to right groin km[facility] 04:17 PM Procedure completed at 16:17 05/29/2018 kmavis 04:18 PM Did you address KARO flow and Dominance? Yes kmavis 04:19 PM HR=71 bpm, VAJB=034/106 mmhg, SpO2=98.0 %, Resp=12 B/min 04:21 PM Sign out completed: Radiation Dose 455.32 mGy, 56.7521 Gy/cm2 Fluoro Time: 3.5 Isovue 370 - 200ml contrast 70 ml given by Saúl Guallpa DO. Complications: None. The patient was discharged out of the labor training manager in stable condition. Cardiac Rehab Consult needed: NoConfirmed administered medications: Yes kmavis 04:21 PM Isovue 370 - 200ml,1 Bottle(s) used. kmavis 04:22 PM Estimated Blood Loss: minimal kmavis 04:22 PM Post ECG NSR kmavis 04:22 PM Post Blood Pressure 143/106 kmavis 04:22 PM Information taught Cardiac Cath kmavis 04:23 PM Education needs Procedure, Plan of Care, and Disease Process kmavis 04:23 PM Learning barriers :None kmavis 04:23 PM Education Methods Verbal kmavis 04:23 PM Education evaluation Able to repeat information kmavis 04:23 PM Plavix, Effient or Brilinta given No kmavis 04:23 PM Complications: None kmavis 04:23 PM HR=65 bpm, SOHQ=042/102 mmhg, SpO2=94.0 %, Resp=22 B/min, Comment=nsr 04:24 PM Sheath left in place to be pulled on floor/holding areaV+Pad kmavis 04:25 PM Site status No bleeding/hematoma - Rt Groin as reported by Helen Flood RT (R) at 16:25 kmavis 04:25 PM Opsite applied kmavis 04:25 PM At 16:25 the ACT was 266 seconds. kmavis 04:28 PM Patient out of room: 16:28 kmavis 04:34 PM Report given to Yessenia LEROY Pt taken to ICU Room #4. 16:34 kmavis Complications Complication None None Hemodynamics Pressures Site Systolic/A Wave Diastolic/V Wave Mean LV 149 85 74 LV 147 8 54 AO 142 32 87 AO 156 97 120 AO 152 87 110 AO 164 97 123 AO 124 65 87 Post Procedure Information Blood Pressure: 143/106 mmHg Rhythm: NSR Post procedural instructions were given Site Checks Time Location Status Staff Sheath In? Note 04:25 PM Rt Groin No bleeding/hematoma Helen Flood RT (R) Yes Pulses Time Site Pre-Procedure Post-Procedure Note 05/29/2018 3:07:00 PM Bilateral DP & PT 2+ Updated by Jane Trinidad RN on 05/29/2018 4:36:54 PM electronically signed on 05/29/2018 4:37:51 PM with status of Final
[2018-05-29] MEDS ORDERED: *HR* Atropine Sulfate 1 MG/10 ML SYRINGE ONE (18:43)
[2018-05-29] MEDS: Heparin 25,000 UNIT/500 ML D5W 25,000 UNIT/500 ML BAG IVC SCH (19:32)
[2018-05-29] MEDS: Nicotine 7 MG PATCH.TD24 TD SCH (19:55)
[2018-05-29] MEDS ORDERED: Adenosine 90 MG/30 ML MLS IV ONE (20:04)
[2018-05-29] MEDS ORDERED: *HR* Labetalol 20 MG/4 ML SYRINGE IVP STA (21:23)
[2018-05-30] MEDS: Acetaminophen 325 MG TABLET PO PRN (00:29)
[2018-05-30] MEDS: Aspirin 81 MG TAB.CHEW PO SCH (07:59)
[2018-05-30] MEDS: Venlafaxine XR (24 HR) 75 MG CAP.ER.24H PO SCH (07:59)
[2018-05-30 08:07] VITALS: BP 139/96
[2018-05-30] MEDS ORDERED: Lisinopril 20 MG TABLET PO SCH (09:00)
[2018-05-30] MEDS ORDERED: Fenofibrate 54 MG TABLET PO SCH (09:00)
--- NOTE | 2018-05-30 09:15 | Discharge Summary ---
- NOTES TO OUTPATIENT PROVIDER Notes to Outpatient Provider: follow up with GI for colonoscopy adn hyper TG. alayna cates PCP and have lipid panel repeated. follow with cardiology as OP. Orders not resulted at time of discharge: Pending orders 05/29/18 08:00 NM armani perf SPECT multi [NM] Routine 05/29/18 13:05 CL Cardiac Catheterization [CL] Routine Date of Encounter: 05/30/18 Time of Encounter: 09:11 - Discharge Diagnosis (1) Unstable angina Priority: Primary Status: Acute (2) Schizoaffective disorder Priority: Secondary Status: Chronic Qualifiers: Schizoaffective disorder type: unspecified Qualified Code(s): F25.9 - Schizoaffective disorder, unspecified (3) Bipolar disease, chronic Priority: Secondary Status: Chronic (4) Hypertension Priority: Secondary Status: Chronic Qualifiers: Hypertension type: unspecified Qualified Code(s): I10 - Essential (primary) hypertension (5) Tobacco abuse Priority: Secondary Status: Chronic (6) Obesity (BMI 30.0-34.9) Priority: Secondary Status: Acute (7) Hyperlipidemia Priority: Secondary Status: Acute Qualifiers: Hyperlipidemia type: mixed hyperlipidemia Qualified Code(s): E78.2 - Mixed hyperlipidemia (8) DVT prophylaxis Priority: Secondary Status: Acute Hospital course: Ms. Mackey is a 48 year old female with history of hypertension, hyperlipidemia, CAD and current tobacco use presented to the emergency department with complaint of left-sided nonradiating chest pain on ambulation. While in the emergency department her pain was alleviated with nitroglycerin 2. Her EKG showed slight ST elevations in V1 and slight ST depression in lead 1 and slight biphasic the presentation of T-wave in V1. These findings were discussed with the on-call zinc miner blasting who recommended to start the patient on on heparin drip and she was admitted for unstable angina. Troponins remained negative 3. Lipid panel performed showed elevated triglycerides cholesterol LDL levels. TSH was within normal limit A1c was found to be 5.5. Echocardiogram performed results below. She underwent stress test which was positive, full report below. Left heart catheterization was performed on 05/29 which showed nonobstructive CAD. Her chest pain had resolved and she was cleared by cardiology to be discharged. She was started on aspirin, metoprolol, lisinopril dosage was increased for better blood pressure control. She was started on Lipitor and fibrates and is to have close follow-up With PCP for lipid levels. she was provided with OP GI appointment for possible EGD and to have surviellence colonoscopy performed as she is 48. As per chart documentation he was been documented that she has atrial fibrillation however patient is unsure if she has ever been told that she has atrial fibrillation. She is currently not on anticoagulation and as per chart review she is had multiple admissions for SI. Electrocardiogram while on this admission showed sinus rhythm. For her to follow-up with cardiology for outpatient Holter monitor placement to rule out atrial fibrillation and to start on anticoagulation as per PCP and cardiology d iscretion. Nursing staff provided patient with appointments with cardiology, GI and PCP. I counseled the patient on importance of diet, nutrition, exercise and smoking cessation extensively. Echocardiogram 05/28Impressions: LVEF 55%. Normal LV chamber size, wall thickness and systolic function. Mild left ventricular diastolic dysfunction. Normal right ventricular structure and function. No significant valvular dysfunction. No pulmonary hypertension. Stress test 05/29Pharmacologic stress ECG is negative for ischemia at level of heart rate achieved. Gated EF = 38%. Medium sized, mild to moderate intensity, mostly reversible defect in the apex and surrounding apical segments suggestive of ischemia. Heart catheterization 05/29 Mild global LV systolic impairment, EF 45%, Moderate non-obstructive CAD, 40% mid LAD, FFR not significant at .89 Discharge discussed with: patient, nurse, technical consultant Time spent discussing smoking cessation with patient: more than 10 minutes - Time Spent with Patient Total time spent providing and/or coordinating discharge services: Greater than 30 minutes (35) - Discharge Medications Prescriptions: Aspirin 81 mg PO DAILY #30 tab.chew Atorvastatin [Lipitor] 40 mg PO HS #30 tablet Fenofibrate [Tricor] 162 mg PO DAILY 30 Days #90 tablet Lisinopril [Zestril] 20 mg PO DAILY #30 tablet Metoprolol [Lopressor] 12.5 mg PO BID 30 Days #60 tablet Nicotine Patch [Nicoderm] 7 mg TD HS #30 patch.td24 Omeprazole 20 mg PO DAILY #30 tab.rap.dr Pat Medications: Venlafaxine XR (24 HR) [Effexor Xr] 225 mg PO DAILY 05/28/18 [History] Aspirin 81 mg PO DAILY #30 tab.chew 05/30/18 [Rx] Atorvastatin [Lipitor] 40 mg PO HS #30 tablet 05/30/18 [Rx] Fenofibrate [Tricor] 162 mg PO DAILY 30 Days #90 tablet 05/30/18 [Rx] Lisinopril [Zestril] 20 mg PO DAILY #30 tablet 05/30/18 [Rx] Metoprolol [Lopressor] 12.5 mg PO BID 30 Days #60 tablet 05/30/18 [Rx] Nicotine Patch [Nicoderm] 7 mg TD HS #30 patch.td24 05/30/18 [Rx] Omeprazole 20 mg PO DAILY #30 tab. 05/30/18 [Rx] Allergies/Adverse Reactions: Allergy/AdvReac Type Severity Reaction Status Date / Time moxifloxacin [From Avelox] Allergy Hives Verified 06/04/15 14:44 codeine AdvReac Palpitation Verified 06/04/15 14:44 s Date of admission: 05/27/18 20:03 Primary care physician: Nancy Mars CNP Consults: 05/27/18 23:46 Consult to Cardiology [CONS] Routine Comment: Consulting Provider: Cardiology Berna Reason for Consult: ER called manager of administration cardiology Dr Guallpa to discuss EKG changes. Unstable angina suspected. Recommended Heparin drip which was started. Call Completed: Yes - Constitutional Vitals: Temp Pulse Resp BP Pulse Ox 97.9 F 90 18 139/96 98 05/30/18 07:31 05/30/18 08:00 05/30/18 08:00 05/30/18 08:00 05/30/18 08:00 Exam: General: Patient is alert, oriented, no acute distress, obese Head: atraumatic, normocephalic, Eye: normal appearance, PERRL, no scleral icterus, no conjunctival injection ENT: mucous membranes moist, normal external ear exam Neck: normal inspection, trachea midline, full ROM, no carotid bruits Chest: normal inspection, symmetric chest rise Respiratory: Good respiratory effort. Bilateral breath sounds are clear without wheezing, crackles, or rhonchi. Cardiovascular: Distant heart sounds secondary to body habitus, Regular rate and rhythm. s1 and s2 No clicks, rubs, gallops, or murmors. Abdomen: Bowel sounds present normoactive x-4 quadrants. Abdomen is soft, nondistended. no Epigastric tenderness. No guarding or rebound. No organomegaly noted, obese musculoskeletal: Spontaneously moving all extremities. no edema, no calf tenderness Skin: warm, dry, intact. Neuro: Alert and oriented x4. No focal deficit Psych: Patient's affect is normal - Patient Status Disposition: Home, Self-Care Condition: Fair Functional capacity at discharge: independent ambulation Overall status at discharge: patient is progressing back to baseline - Discharge Instructions Follow Up With: Ludy Adrian CNP [Advanced Practice Nurse] - Nancy Mars CNP [Primary Care Provider] - 06/15/18 8:30 am Harley Torres MD [Partnered Physician] - (Spoke with office staff. They requested a appt web request to be entered, they were unable to give me a date/time at the time of call. Office will call patient with date and time off appointment and discuss colonoscopy. ) Forms: ED Satisfaction Letter - Diet and Activity Activity: increase activity as tolerated (Along with post catheter limitations discussed by the cardiology team) Diet: low fat, low cholesterol, low salt diet
--- NOTE | 2018-05-30 09:18 | Event Note ---
Date of Encounter: 05/30/18 Time of Encounter: 09:16 - Cardiology Event Note [facility] yesterday with moderate, non-obstructive CAD, FFR negative, for abnormal stress test. Cardiology will sign off, will arrange outpatient follow up. RISK FACTORS: STOP SMOKING: If you smoke, STOP. Smoking or tobacco use significantly increases your risk of heart disease because nicotine causes the arteries to narrow or constrict. It also causes fats to stick to the artery. Your chances of having a heart attack are greatly increased if you continue to smoke. For more information, call the education line for smoking cessation 1-907-NOOCDZB EAT A LOW FAT/CHOLESTEROL/SODIUM DIET: This diet may help reduce your chances of having a heart attack. LIFTING: Avoid lifting anything more than 10 pounds for 5-7 days Prior to straining, laughing, sneezing and/or coughing, apply manual pressure directly over insertion site. ACTIVITY: You may walk or climb stairs as tolerated You can resume sexual activity as tolerated In general, you are encouraged to engage in a minimum of 30 minutes or more of moderate intensity physical activity, such as brisk walking, daily or at least 3-4 times weekly BATHING Do not submerge the site into water (bath tub, hot tub, swimming pool) for 1 week. This can be a source for infection into the blood stream. You may shower after 24 hours SITE CARE: After 24 hours, you may remove the dressing and leave the site open to air. Keep the site clean and dry. Clean gently and pat dry. You can expect bruising and tenderness that gradually resolve within a week or two. Return to work as instructed per your physician Resume driving as instructed per physician Keep all scheduled follow up appointments Resume medications as instructed IMPORTANT: If prescribed a Platelet Aggregation Inhibitor such as, Plavix, Brilinta or Effient: Duration of therapy is minimum one year These medications are often used in combination with Aspirin in prevention of future heart attacks Never discontinue unless consult with your Pipe Welder STROKE (CVA) Risk factors for a stroke are: Age, cigarette smoking, diabetes, excessive alcohol consumption, family history, high blood pressure, overweight, physical inactivity, prior stroke, heart attack, diagnosis of carotid artery stenosis or other artery disease. Warning signs: Sudden numbness or weakness of the face, arm or leg; especially on one side of the body, sudden confusion, trouble speaking or understanding, sudden trouble seeing in one or both eyes, sudden trouble walking, dizziness, loss of balance or coordination, sudden severe headache with no cause. Call 911 or go to the Emergency Room. CONGESTIVE HEART FAILURE: If you have been diagnosed with Congestive Heart Failure (CHF) and your symptoms return, make an appointment with your physician Weigh yourself daily. Notify your physician if you have a weight gain of two or more pounds in one day or five or more pounds in one week. If you experience any difficulty breathing, please call 911 BLEEDING: Although the risk of bleeding is minimal, it can happen. If you have any bleeding from the site, apply firm pressure above the puncture site for 10-15 minutes. If the bleeding does not stop, continue manual pressure and call 911 Contact your physician if: You develop a fever greater than 101 degrees Fahrenheit Your site becomes reddened or has any drainage You have an increase in pain or burning at the site or if a large knot forms at the site. If you experience chest pain, shortness of breath, dizziness, or extreme tiredness, stop the activity and rest. Please notify your physicians office if y ou experience any of these symptoms and they are not relieved by rest please call 911!
== END 2018-05-30 11:03 | disposition home or self-care (01) ==
LOC: EMEROOARM 16:48 → 2NENU 16:48 → SUATTDRO 20:03 → 2NENU 20:50 → ICNU 05-29 16:45
PROVIDERS: ADMIT Internal Medicine; ATTEND Internal Medicine